=== PATIENT | male | born 1970 | race Caucasian/White ===

== ENCOUNTER 2018-11-19 23:57 | Emergency (ER) | payer SELFPAY ==
[2018-11-20] MEDS ORDERED: Tenecteplase 50 MG Kit ONE (00:05)
[2018-11-20] MEDS ORDERED: Heparin Sod,Pork In 0.45% Nacl 25,000 UNIT/500 ML IV.SOLN IV ONE (00:06)
[2018-11-20] MEDS ORDERED: Heparin Sodium 5,000 Units/ML Vial ONE (00:06)
--- NOTE | 2018-11-20 00:09 | EDM.PDOC ---
ED HPI GENERAL MEDICAL PROBLEM - General Stated Complaint: HEART ATTACK Time Seen by Provider: 11/20/18 00:09 - History of Present Illness INITIAL COMMENTS - FREE TEXT/NARRATIVE: HISTORY AND PHYSICAL: History of present illness: Patient's 48-year-old white male with no significant past medical history presents a concern of chest pain substernal with associated shortness of breath nausea and diaphoresis that woke him from sleep EMS responded and patient was found to have inferior Q changes on his EKG on arrival here 12-lead EKG demonstrated STEMI with ST elevations inferiorly to reciprocal depression noted. Patient continues to have pain. Review of systems: As per history of present illness and below otherwise all systems reviewed and negative. Past medical history: As per history of present illness and as reviewed below otherwise noncontributory. Surgical history: As per history of present illness and as reviewed below otherwise noncontributory. Social history: No reported history of drug or alcohol abuse. Family history: As per history of present illness and as reviewed below otherwise noncontributory. Physical exam: HEENT: Atraumatic, normocephalic, pupils reactive, negative for conjunctival pallor or scleral icterus, mucous membranes moist, throat clear, neck supple, nontender, trachea midline. Lungs: Clear to auscultation, breath sounds equal bilaterally, chest nontender. Heart: S1S2, regular, negative for clicks, rubs, or JVD. Abdomen: Soft, nondistended, nontender. Negative for masses or hepatosplenomegaly. Negative for costovertebral tenderness. Pelvis: Stable nontender. Genitourinary: Deferred. Rectal: Deferred. Extremities: Atraumatic, negative for cords or calf pain. Neurovascular unremarkable. Neuro: Awake, alert, oriented. Cranial nerves II through XII unremarkable. Cerebellum unremarkable. Motor and sensory unremarkable throughout. Exam nonfocal. Diagnostics: CBC CMP troponin PT/INR chest x-ray EKG right-sided EKG Therapeutics: IV O2 monitor saline bolus 2 L TN K per protocol patient received full dose aspirin prior to arrival per paramedics Impression: #1 acute inferior wall myocardial infarction Definitive disposition and diagnosis as appropriate pending reevaluation and review of above. ED ROS GENERAL - Review of Systems Review Of Systems: ROS reveals no pertinent complaints other than HPI. ED EXAM, GENERAL - Physical Exam Exam: See Below (See dictation) Departure - Departure Time of Disposition: 00:08 Disposition: DC/Tfer to Acute Hospital 02 Condition: Serious Clinical Impression: Acute myocardial infarction - Discharge Information
[2018-11-20] MEDS ORDERED: Tenecteplase 50 MG Kit IV ONE (00:10)
--- NOTE | 2018-11-20 00:27 | CR ---
INDICATION: Chest pain, STEMI TECHNIQUE: Chest 1 view COMPARISON: None FINDINGS: Cardiovascular and mediastinum: Heart size and vasculature are normal in caliber and appearance. Lungs and pleural spaces: Lungs are clear. No sign of infiltrate or mass. No sign of pleural effusion. No pneumothorax. Bones and soft tissues: No significant findings. IMPRESSION: Unremarkable single view chest. Dictated by Ha Jeffers MD @ Nov 20 2018 12:24AM Signed by Dr. Ha Jeffers @ Nov 20 2018 12:25AM
[2018-11-20 00:42] LABS: BLOOD UREA NITROGEN,BUN 9 mg/dL (7.0-18.0); CARBON DIOXIDE,CO2 24.2 mmol/L (21.0-32.0); CHLORIDE,CL 104 mmol/L (98-107); GLUCOSE RANDOM 176 mg/dL (74-106); POTASSIUM,K 3.4 mmol/L (3.5-5.1); SODIUM,NA 139 mmol/L (136-148)
[2018-11-20] MEDS ORDERED: fentaNYL 100 MCG/2 ML SDV IVPUSH PRN (01:04)
[2018-11-20] MEDS ORDERED: Sodium Chloride 0.9% 1,000 ML IV ONE ×2 (04:37→04:38)
== END 2018-11-20 00:30 ==
LOC: MW.ED 23:57
DX: I21.19 ST elevation (STEMI) myocardial infarction involving other coronary artery of inferior wall (principal)
CPT/HCPCS: 36415; 71045; 80053; 84484; 85025; 85610; 96374; 96375; 99285; J1644; J3010; J3101; J7040